=== PATIENT | male | born 1950 | race Caucasian/White ===

== ENCOUNTER → 2022-03-04 | Outpatient (CLI) | payer MEDICARE, OTHER | LOC: RAD 08:30 | DX: M47.816 Spondylosis without myelopathy or radiculopathy, lumbar region (principal); M85.80 Other specified disorders of bone density and structure, unspecified site ==

== ENCOUNTER 2022-03-31 09:13 | Outpatient (RCR) | payer MEDICARE, OTHER | END 2022-04-02 | disposition home or self-care (01) | LOC: PT | DX: M54.50 Low back pain, unspecified (principal) ==

== ENCOUNTER 2022-04-08 07:52 | Outpatient (RCR) | payer MEDICARE, OTHER | END 2022-05-03 | disposition home or self-care (01) | LOC: PT | DX: M54.50 Low back pain, unspecified (principal) ==

== ENCOUNTER 2022-05-04 07:54 | Outpatient (RCR) | payer MEDICARE, OTHER | END 2022-06-02 13:45 | disposition still patient (30) | LOC: PT 07:54 | DX: M54.50 Low back pain, unspecified (principal) ==

== ENCOUNTER → 2022-12-22 | Outpatient (CLI) | payer MEDICARE, OTHER | LOC: RAD 07:47 | DX: S46.111A Strain of muscle, fascia and tendon of long head of biceps, right arm, initial encounter (principal); M75.121 Complete rotator cuff tear or rupture of right shoulder, not specified as traumatic; C34.90 Malignant neoplasm of unspecified part of unspecified bronchus or lung; C79.51 Secondary malignant neoplasm of bone; X58.XXXA Exposure to other specified factors, initial encounter | CPT/HCPCS: A9575 ==

== ENCOUNTER 2024-04-10 10:24 | Emergency (ER) | payer OTHER ==
[2024-04-10 11:05] LABS: BASO # 0.03 K/mm3 (0.02-0.10); EOS # 0.06 K/mm3 (0.04-0.40); EOS % 0.8 % (0.0-4.0); HEMATOCRIT 30.4 % (42.0-52.0); HEMOGLOBIN 9.5 g/dL (13.5-18.0); LYMPH# 0.73 K/mm3 (1.50-4.00); MEAN CELL VOLUME 96 fl (78-100); MEAN CORPUSCULAR HEMOGLOBIN 30 pg (27-31); MEAN CORPUSCULAR HGB CONC 31 g/dL (33-37); MEAN PLATELET VOLUME 8.8 fl (7.4-10.4); MONO # 1.05 K/mm3 (0.20-0.80); NEU # 5.61 K/mm3 (1.40-6.50); PLATELET COUNT 304 K/mm3 (130-400); RED BLOOD COUNT 3.18 M/mm3 (4.20-5.60); RED CELL DISTRIBUTION WIDTH 15.6 % (11.5-14.5); WHITE BLOOD COUNT 7.6 K/mm3 (4.8-10.8)
[2024-04-10 11:12] LABS: ALBUMIN 3.2 g/dL (3.4-4.8); SODIUM 135 mmol/L (136-145)
[2024-04-10 11:13] LABS: CALCIUM 8.8 mg/dL (8.3-10.5)
[2024-04-10 11:14] LABS: GLUCOSE 93 mg/dL (75-110)
[2024-04-10 11:15] LABS: CARBON DIOXIDE 22 mmol/L (23-31)
[2024-04-10 11:16] LABS: TOTAL BILIRUBIN 0.3 mg/dL (0.2-1.2)
[2024-04-10 11:20] LABS: AST-SGOT 10 U/L (5-34)
[2024-04-10 11:21] LABS: ALT/SGPT 6 U/L (0-55); D-DIMER 1.98 mg/L FEU (0.15-0.50)
[2024-04-10 11:41] LABS: TROPONIN-I < 0.030 ng/mL (0.00-0.033)
[2024-04-10] MEDS ORDERED: Iohexol 350 - 100 ML VIAL IV ONE (11:44)
[2024-04-10] MEDS ORDERED: FUROSEMIDE20 MG PO (12:59)
[2024-04-10] MEDS ORDERED: POTASSIUM CHL (13:00)
[2024-04-10] MEDS ORDERED: POTASSIUM CL (13:01)
[2024-04-10] MEDS ORDERED: CALCIUM CIT-VI1 EAC1 PO (13:02)
[2024-04-10] MEDS ORDERED: PRILOSEC OTC20 MG PO (13:03)
[2024-04-10] MEDS ORDERED: MESALAMINE800 MG PO (13:04)
[2024-04-10] MEDS ORDERED: LEVOTHYROXIN0.088 MG PO (13:04)
[2024-04-10] MEDS ORDERED: LOSARTAN POTASS1 TA1 PO (13:05)
[2024-04-10] MEDS ORDERED: NORVASC 10MG10 MG PO (13:05)
[2024-04-10] MEDS ORDERED: B-121000 MCG PO (13:06)
[2024-04-10] MEDS ORDERED: FOLIC ACID1 MG PO (13:07)
[2024-04-10] MEDS ORDERED: CETIRIZINE HCL10 MG PO (13:07)
[2024-04-10] MEDS ORDERED: JUICE PLUS FRUIT PO (13:08)
[2024-04-10] MEDS ORDERED: JUICE PLUS VEGETABLE PO (13:09)
[2024-04-10] MEDS ORDERED: JUICE PLUS OMEGA PO (13:09)
[2024-04-10 13:32] VITALS: BP 114/59
== END 2024-04-10 13:35 | disposition home or self-care (01) ==
LOC: ED 10:24
PROVIDERS: Physician Assistant
DX: C34.90 Malignant neoplasm of unspecified part of unspecified bronchus or lung (principal); J90 Pleural effusion, not elsewhere classified; Z87.891 Personal history of nicotine dependence
CPT/HCPCS: Q9967